=== PATIENT | female | born 1975 | race Caucasian/White ===

== ENCOUNTER 2018-02-15 23:08 | Emergency (ER) | payer OTHER ==
[2018-02-15 23:14] VITALS: BP 113/62; PULSE 86; TEMP 97.8; BMI 36.8
--- NOTE | 2018-02-15 23:49 | PDOC ---
History of Present Illness - General Chief Complaint: Sore Throat Stated Complaint: COLD SYMPTOMS Time Seen by Provider: 02/15/18 23:23 History Source: Patient Exam Limitations: No Limitations - History of Present Illness Initial Comments: 02/16/18 00:02 Best Contact: PCP: Maria Isabelx: Epihx: Allergies: LMP: 42-year-old female presents to the ER complaining of a sore throat since yesterday with subjective fever and no chills. Patient denies headache, dizziness, lightheadedness, facial pain, nasal congestion, rhinorrhea, earaches , difficulty swallowing, neck pain/stiffness, back pains, chest pain, shortness of breath, abdominal pains, urinary symptoms. Patient states she's been taking ibuprofen with relief. There are no exacerbating factors. Past History - Past Medical History Allergies/Adverse Reactions: Allergies Allergy/AdvReac Type Severity Reaction Status Date / Time No Known Allergies Allergy Verified 02/15/18 23:13 Home Medications: Ambulatory Orders Amoxicillin - [Amoxicillin 500mg Capsule -] 500 mg PO BID #14 capsule 02/16/18 - Suicide/Smoking/Psychosocial Hx Smoking History: Never smoked Have you smoked in the past 12 months: No Information on smoking cessation initiated: No Hx Alcohol Use: No Drug/Substance Use Hx: No Review of Systems - Review of Systems Able to Perform ROS?: Yes Comments:: 02/16/18 00:03 CONSTITUTIONAL: Absent: fever, chills, diaphoresis, generalized weakness, malaise, loss of appetite HEENT: +throat pain Absent: rhinorrhea, nasal congestion, throat swelling, difficulty swallowing, mouth swelling, ear pain, eye pain, visual Changes CARDIOVASCULAR: Absent: chest pain, loss of consciousness, palpitations, irregular heart rate, peripheral edema RESPIRATORY: Absent: cough, shortness of breath, dyspnea with exertion, orthopnea, wheezing, stridor, hemoptysis GASTROINTESTINAL: Absent: abdominal pain, abdominal distension, nausea, vomiting, diarrhea, constipation, melena, hematochezia GENITOURINARY: Absent: dysuria, frequency, urgency, hesitancy, hematuria, flank pain, genital pain MUSCULOSKELETAL: Absent: myalgia, arthralgia, joint swelling SKIN: Absent: rash, itching, pallor Is the patient limited [place]ian proficient: No *Physical Exam - Vital Signs Last Vital Signs Temp Pulse Resp BP Pulse Ox 97.8 F 86 16 113/62 97 02/15/18 23:11 02/15/18 23:11 02/15/18 23:11 02/15/18 23:11 02/15/18 23:11 - Physical Exam Comments: 02/16/18 00:04 GENERAL: Well developed, well nourished. Awake and alert. No acute distress. HEENT: +tonsillar:erythematous/exudates Normocephalic, atraumatic. PERRLA, EOMI. No conjunctival pallor. Sclera are non- icteric. Moist mucous membranes. NECK: Supple. Full ROM. No JVD. Carotid pulses 2+ and symmetric, without bruits. No thyromegaly. No lymphadenopathy. CARDIOVASCULAR: Regular rate and rhythm. No murmurs, rubs, or gallops. Distal pulses are 2+ and symmetric. PULMONARY: No evidence of respiratory distress. Lungs clear to auscultation bilaterally. No wheezing, rales or rhonchi. ABDOMINAL: Soft. Non-tender. Non-distended. No rebound or guarding. No organomegaly. Normoactive bowel sounds. MUSCULOSKELETAL Normal range of motion at all joints. No bony deformities or tenderness. No CVA tenderness. EXTREMITIES: No cyanosis. No clubbing. No edema. No calf tenderness. SKIN: Warm and dry. Normal capillary refill. No rashes. No jaundice. *DC/Admit/Observation/Transfer Diagnosis at time of Disposition: Strep pharyngitis - Discharge Dispostion Disposition: HOME Condition at time of disposition: Stable Decision to Admit order: No - Referrals Referrals: ON STAFF,NOT [Primary Care Provider] - Ronny Calderon MD [Staff Physician] - - Patient Instructions Printed Discharge Instructions: DI for Strep Throat Additional Instructions: Take Tylenol alternating with Motrin every 6 hours as needed for pain A fever Increase fluids Follow up with your physician this week Amoxicillin 500mg take 1 tablet twice a day for 7days Return back to the emergency department for severe/persistent or worsening symptoms - Post Discharge Activity
[2018-02-16] MEDS ORDERED: AMOXICILLIN 500 MG CAPSULE (FP) PO ONE (00:50)
[2018-02-16] MEDS ORDERED: AMOXICILLIN 500 MG CAPSULE (FP) ONE (00:55)
== END 2018-02-16 01:00 | disposition home or self-care (01) ==
LOC: JER 23:08
DX: J02.0 Streptococcal pharyngitis (principal); B95.0 Streptococcus, group A, as the cause of diseases classified elsewhere
CPT/HCPCS: 87070; 87077; 87430; 99281-25

== ENCOUNTER 2020-12-15 15:39 | Emergency (ER) | payer OTHER ==
[2020-12-15 16:01] VITALS: BMI 35.4
[2020-12-15] MEDS ORDERED: BAMLANIVIMAB 700 MG in SODIUM CHLORIDE 250 ML IVPB ONE (16:17)
[2020-12-15 17:08] LABS: HEMATOCRIT 40.9 % (32.4-45.2); HEMOGLOBIN 13.4 GM/dL (10.7-15.3); MCHC 32.8 g/dl (32.0-36.0); MEAN CELL VOLUME 85.2 fl (80-96); MEAN PLT VOLUME 9.4 fl (7.5-11.1); PLATELET COUNT 272 K/MM3 (134-434); RDW 14.3 % (11.6-15.6); WHITE BLOOD COUNT 4.5 K/mm3 (4.0-10.0)
[2020-12-15 17:31] LABS: POTASSIUM 4.8 mmol/L (3.5-5.1)
[2020-12-15 17:33] LABS: CALCIUM 9.7 mg/dL (8.5-10.1)
[2020-12-15 17:34] LABS: BLOOD UREA NITROGEN 20.8 mg/dL (7-18)
[2020-12-15 17:37] LABS: CREATININE 0.6 mg/dL (0.55-1.3)
[2020-12-15 20:08] VITALS: BP 127/68; PULSE 76; TEMP 98.5
== END 2020-12-15 20:09 | disposition home or self-care (01) ==
LOC: JER 15:39 → JCOVINFU 15:39
DX: U07.1 COVID-19 (principal)
CPT/HCPCS: 36415; 80048; 85027; 99284-25; M0239; Q0239